=== PATIENT | female | born 1955 | race Two or more races ===

== ENCOUNTER 2024-11-25 08:06 | Inpatient (IN) | payer MEDICARE, OTHER ==
[~2024-11-25] VITALS: Ht 167.6 cm; Wt 38.5 kg
[2024-11-25] VITALS (9 sets, daily range): BP systolic 108–120; BP diastolic 47–57; PULSE 70–96; RESP 16–22; TEMP 97.7–98; O2SAT 94–96
[2024-11-25 09:00] LABS: Basophils # (auto) 0 10 ^3/uL (0-0.2); Basophils % (auto) 0.4 % (0.0-2.0); Eosinophils # (auto) 0 10 ^3/uL (0-0.8); Hematocrit 42.6 % (36.0-46.0); Hemoglobin 15.1 g/dL (12.2-16.2); Lymphocytes # (auto) 0.6 10 ^3/uL (0.4-5.4); Lymphocytes % (auto) 12.9 % (10.0-50.0); Mean Corpuscular Hemoglobin 33.7 pg (28.0-32.0); Mean Corpuscular Hgb Conc. 35.5 g/dL (32.0-36.0); Mean Corpuscular Volume 95.1 fL (80.0-100.0); Monocytes # (auto) 0.7 10 ^3/uL (0-1.3); Monocytes % (auto) 14.9 % (0.0-12.0); Neutrophils # (auto) 3.4 10 ^3/uL (1.6-8.6); Neutrophils % (auto) 71.8 % (37.0-80.0); Nucleated Red Blood Cells % 0.1 %; Platelet Count (auto) 189 10^3/uL (140-450); Red Blood Cells 4.48 10^6/uL (4.0-5.20); Red Cell Distribution Width 12.9 % (11.8-14.3); White Blood Cell 4.7 10^3/uL (4.4-10.8)
--- NOTE | 2024-11-25 09:09 | DVH ---
EXAM: XR Chest, 1 View CLINICAL INDICATION: flu like symptoms TECHNIQUE: Frontal view of the chest. COMPARISON: None FINDINGS: LUNGS AND PLEURAL SPACES: Hyperlucent lungs. Flattening of the diaphragm. No consolidation. No pn eumothorax. HEART: Unremarkable. No cardiomegaly. MEDIASTINUM: Unremarkable. Normal mediastinal contour. BONES/JOINTS: Unremarkable. No acute fracture. OTHER FINDINGS: . . IMPRESSION: Suggestion of COPD.
[2024-11-25 09:20] LABS: Alanine Aminotransferase 15 U/L (7-40); Albumin 4.6 g/dL (3.2-4.8); Alkaline Phosphatase 85 U/L (46-116); Anion Gap 9 (5-15); Aspartate Aminotransferase 26 U/L (13-40); BUN/Creatinine Ratio 14.1 (10.0-20.0); Bilirubin, Total 0.5 mg/dL (0.2-1.0); Blood Urea Nitrogen 11 mg/dL (9-23); Calcium 9.5 mg/dL (8.7-10.4); Carbon Dioxide 28 mmol/L (20-31); Potassium 3.6 mmol/L (3.5-5.1); Total Protein 7.6 g/dL (5.7-8.2)
[2024-11-25 09:22] LABS: Chloride 91 mmol/L (98-107); Glucose 125 mg/dL (74-106); Sodium 128 mmol/L (136-145)
--- NOTE | 2024-11-25 09:47 | ED.PDOC ---
SOB-HPI HPI Comments HPI: Poor Historian. HPI: 69 year old female accompanied by presents to the ED with chief complaint of flu-like illness. Patient reports that she has been experiencing a productive cough, nausea, subjective fever, body aches, and generalized weakness for the past week along with one episode of vomiting 2 days ago that has resolved. The vomiting was associated with coughing. Patient relays that she has not seen a doctor in the last 30 years and she smokes tobacco daily. Patient denies any diarrhea, abdominal pain, chest pain, dizziness, at this time. Vitals: Temp: 97.9F BP: 140/64 HR: 100 RR: 17 spO2: 95% Past Medical History: Hypotension, Cervical cancer, Pneumonia Past Surgical History: Tonsillectomy Social History: Smokes cigarettes. Denies ETOH or drug use. Allergies: Penicillins REVIEW OF SYSTEMS: CONSTITUTIONAL: Denies acute: diaphoresis, chills, HEAD: Denies acute: headache, photophobia Eyes: Denies acute: Double vision, vision loss, eye pain, eye discharge. EARS: Denies acute: tinnitus, hearing loss, ear discharge, ear pain, THROAT: Denies acute: sore throat, swelling, difficulty swallowing , pain with swallowing, change in voice. NECK: Denies acute: neck pain, neck swelling, stiff neck. HEART: Denies acute : chest pain, palpitations, LUNGS: Denies acute: wheezing, hemoptysis ABDOMEN: Denies acute: abdominal pain, Vomiting, diarrhea, melena , hematemesis, hematochezia SKIN: Denies acute: rash, redness, lesions, itchiness. EXTREMITIES: Denies acute: calf pain, numbness, tingling, weakness, denies pain in extremity. Denies acute: Low back pain. Neuro: Denies acute: focal neurological deficit, motor or sensory focal neurological deficit, tremors, seizure like activity, confusion, dizziness, change in mental status, loss of bowel or bladder function, cauda equina like symptoms. : Denies acute: dysuria, hematuria, flank pain, increase in urinary frequency. PSYCH: Denies acute: hallucination, suicidal ideation, homicidal ideation. FEMALE: Denies acute: abnormal vaginal bleeding, foul odor, unusual discharge. PHYSICAL EXAM: General: Mild acute distress, awake and alert. Head: normocephalic, atraumatic. Neck: supple, trachea is midline, no swelling. Throat: Normal phonation. Eyes:, no erythema, no purulent discharge, no proptosis, no icterus. Heart: regular rate, regular rhythm, no significant murmur appreciated. Lungs: Mild respiratory distress, Able to speak in full sentences. Bilateral wheezing, bilateral rhonchi, no crackles. No stridors Abdomen: non tender to palpation, non distended, soft, no guarding, no rebound, + bowel sounds. Neuro: Awake, Alert, oriented to name, self, situation, follows commands GCS=15. Speech is normal. Skin: no petechia, no purpura, no cyanosis, non-pale, not jaundice. Lower extremities: --no - Pitting edema no deformity, no focal swelling, no calf TTP. Makes eye contact. moves all four extremities. Face: no apparent facial droop. ED COURSE: Chief Complaint: Flu like Time Seen by MD: 09:43 Reviewed notes: Nurses Notes, Medications, Allergies Information Source: Patient Mode of Arrival: Ambulatory Was a procedure done? Was a procedure done?: No Differential Dx Differential Diagnosis: Other (DDx include ACS, unstable angina, anxiety, PE, pneumothroax, neoplasm, cardiac ischemia, COPD, asthma, CHF, pleural effusion, tobacco abuse, pneumonia, hypoxia, hypercapnia, anemia., infection/sepsis., pulmonary edema. Asthma, Cardiac tamponade, infection.) X-Ray, Labs, Meds, VS Vital Signs Date Time Temp Pulse Resp B/P (MAP) Pulse Ox O2 Delivery O2 Flow Rate FiO2 11/25/24 10:31 22 85 Room Air* 0 21 11/25/24 10:30 93 16 110/52 (71) 90 11/25/24 08:49 16 Room Air* 0 21 11/25/24 08:40 101 18 97 Room Air 11/25/24 08:40 97.8 101 18 124/69 (87) 97 97.8 11/25/24 08:27 97.9 100 17 140/64 (89) 95 97.9 11/25/24 08:27 17 Room Air* 0 21 Lab Test 11/25/24 10:14 11/25/24 09:10 11/25/24 08:45 Range/Units Blood Gas Specimen Type Arterial Blood Gas Sample Site Left radial Blood Gas Patient Temperature 37.0 Arterial Blood Date Drawn [id number] Arterial Blood pH 7.471 H 7.350-7.450 Arterial Blood Partial Pressure CO2 35.5 32.0-45.0 mmHg Arterial Blood Partial Pressure O2 47.5 *L 83.0-108.0 mmHg Arterial Blood HCO3 25.3 21.0-28.0 mmol/L Arterial Blood Oxygen Saturation 84.6 *L 94.0-98.0 % Arterial Blood Base Excess 2.1 -2.0-3.0 mmol/L Arterial Blood Oxyhemoglobin 82.9 L 94.0-98.0 % Arterial Blood Carboxyhemoglobin 1.6 H 0.5-1.5 % Arterial Blood Methemoglobin 0.4 0.0-1.5 % Clint Test Yes Blood Gas Total Hemoglobin 15.30 12.0-16.0 g/dL Blood Gas Liter Flow 0.00 Blood Gas Modality Room air FiO2 % 21.0 Blood Gas Critical Value Read Back Yes Blood Gas Notified Whom sri Gonzalez Blood Gas Notified Time [id number] Blood Gas Notified By Scientific Photographer da mendez Influenza Type A Antigen Negative Negative Influenza Type B Antigen Negative Negative SARS-CoV-2 Antigen (Rapid) Positive NEGATIVE White Blood Count 4.7 4.4-10.8 10^3/uL Red Blood Count 4.48 4.0-5.20 10^6/uL Hemoglobin 15.1 12.2-16.2 g/dL Hematocrit 42.6 36.0-46.0 % Mean Corpuscular Volume 95.1 80.0-100.0 fL Mean Corpuscular Hemoglobin 33.7 H 28.0-32.0 pg Mean Corpuscular Hemoglobin Concent 35.5 32.0-36.0 g/dL Red Cell Distribution Width 12.9 11.8-14.3 % Platelet Count 189 140-450 10^3/uL Mean Platelet Volume 7.5 6.9-10.8 fL Neutrophils (%) (Auto) 71.8 37.0-80.0 % Lymphocytes (%) (Auto) 12.9 10.0-50.0 % Monocytes (%) (Auto) 14.9 H 0.0-12.0 % Eosinophils (%) (Auto) 0.0 0.0-7.0 % Basophils (%) (Auto) 0.4 0.0-2.0 % Neutrophils # (Auto) 3.4 1.6-8.6 10 ^3/uL Lymphocytes # (Auto) 0.6 0.4-5.4 10 ^3/uL Monocytes # (Auto) 0.7 0-1.3 10 ^3/uL Eosinophils # (Auto) 0 0-0.8 10 ^3/uL Basophils # (Auto) 0 0-0.2 10 ^3/uL Nucleated Red Blood Cells 0.1 % Sodium Level 128 L 136-145 mmol/L Potassium Level 3.6 3.5-5.1 mmol/L Chloride Level 91 L 98-107 mmol/L Carbon Dioxide Level 28 20-31 mmol/L Anion Gap 9 5-15 Blood Urea Nitrogen 11 9-23 mg/dL Creatinine 0.78 0.550-1.02 mg/dL Glomerular Filtration Rate Calc 83 >90 mL/min BUN/Creatinine Ratio 14.1 10.0-20.0 Serum Glucose 125 H 74-106 mg/dL Lactic Acid Level 1.4 0.4-2.0 mmol/L Calcium Level 9.5 8.7-10.4 mg/dL Total Bilirubin 0.5 0.2-1.0 mg/dL Aspartate Amino Transferase (AST) 26 13-40 U/L Alanine Aminotransferase (ALT) 15 7-40 U/L Alkaline Phosphatase 85 46-116 U/L Troponin I High Sensitivity 3 L </=34 ng/L B-Type Natriuretic Peptide 46.08 0-100 pg/mL Total Protein 7.6 5.7-8.2 g/dL Albumin 4.6 3.2-4.8 g/dL Current Medications Medications (Trade) Dose Ordered Sig/Javed Route Start Time Stop Time Status Last Admin Albuterol (Ventolin Medneb) 2.5 mg ONCE ONCE NEB 11/25/24 09:45 11/25/24 10:01 DC 11/25/24 10:31 Ipratropium [place] (Atrovent Medneb) 1 mg ONCE ONCE NEB 11/25/24 09:45 11/25/24 10:01 DC 3/15/25 10:31 Methylprednisolone Sodium Succinate (Solu Medrol) 125 mg ONCE ONCE IV 11/25/24 09:45 11/25/24 10:01 DC 11/25/24 10:20 Time of 1ST Reevaluation: 10:43 Reevaluation 1ST: Unchanged Patient Education/Counseling: Diagnosis, Treatment Family Education/Counseling: Diagnosis, Treatment Comments Patient presented with the above HPI.--respiratory----workup was initiated. patient was found with the above mentioned diagnosis. the following medications were ordered: please refer to order lists of meds and tests obtained by myself Dr. Earl. Patient ED course and VS have been stabilized. Patient has been reassessed in the ED and remained in a stable condition. Pertinent incidental findings were discussed with the patient and/or family. Patient/family voices understanding and is agreeable with plan. Patient has been observed in the ED adequate length of time to insure improvement/stability. Escalation of care considered: Consideration of escalation to observation or admission Patient was ADMITTED to the medicine team for further evaluation and treatment of their presentation. All the reports of any imaging studies that were ordered by myself were reviewed by myself. Departure 1 Departure Time of Disposition: 10:19 Impression: Primary Impression: Hypoxemia Additional Impression: COVID-19 virus infection Disposition: ADMITTED INPATIENT Admit to: Tele Condition: Guarded Discharged With: Self Critical Care Note Critical Care Time?: Yes (35 min-critical care time only) Heart Score Heart Score: Heart Score Response (Comments) Value History Slightly Suspicious 0 EKG Normal 0 Age >65 2 Risk Factors 1 or 2 risk factors 1 Troponin Normal limit 0 Total 3 I personally scribed for WILBERT EARL DO ([email or web address]) on 11/25/24 at 09:47. Electronically submitted by Jefferson Bartholomew ([email or web address]). WILBERT EARL DO Nov 25, 2024 09:47
[2024-11-25] MEDS: methylPREDNISolone SOD SUCC 125 MG/2 ML VL IV ONE (10:20)
[2024-11-25] MEDS: ALBUTEROL SULF 2.5 MG/0.5ML(0.5%) NEB SOLN NEB ONE (10:31)
[2024-11-25] MEDS: IPRATROPIUM BROM 0.5 MG/2.5ML INH SOL NEB ONE (10:31)
[2024-11-25 10:37] LABS: Rapid Influenza A Negative (Negative); Rapid Influenza B Negative (Negative)
[2024-11-25 10:46] LABS: Base Excess 2.1 mmol/L (-2.0-3.0)
[2024-11-25 10:57] LABS: COVID19 ANTIGEN SOFIA FIA POSITIVE (NEGATIVE)
[2024-11-25] MEDS ORDERED: REMDESIVIR PER PHARMACY 0 ML IV SCH (11:30)
[2024-11-25] MEDS ORDERED: ONDANSETRON HCL 4 MG/2 ML VIAL IV PRN (11:30)
[2024-11-25] MEDS ORDERED: HYDROcodone-ACET 5/325MG TAB PO PRN (11:30)
[2024-11-25] MEDS ORDERED: ACETAMINOPHEN 325 MG TAB PO PRN (11:30)
--- NOTE | 2024-11-25 12:38 | DVHHP2 ---
History of Present Illness Reason for Visit: Flu-like symptoms History of Present Illness Nel Fried is a 69 year female with past medical history of COPD, hypertension, cervical cancer, pneumonia, osteopenia, and tonsillectomy who presents to the ED for flu-like symptoms of nausea, cough, decreased appetite, dehydration, shortness of breath, and diarrhea. Patient reports that she was not exposed to any recent sick contacts but may have gotten her son sick. She also reports that she has been sick for the last 1 week. She also reported that she had some productive cough but does not recall the color. Patient denies any chest pain, abdominal pain, vomiting, dizziness, numbness, tingling, fever, or chills. Patient also reports that she has been getting weak. Patient reported that she just quit smoking cigarettes last week. Pulmonary: COPD, Pneumonia Past Medical History Hypotension Cervical cancer Osteopenia Past Surgical History: Tonsillectomy Family History: Other (Dad with heart disease) Smoke: Quit ALCOHOL: none Drugs: Marijuana Lives: with Family Domestic Violence: Neg Review of Systems Constitutional: Yes: Other (Decreased appetite) Respiratory: Cough, Shortness of breath, Sputum Gastrointestinal: Nausea, Diarrhea Allergies: Coded Allergies: Penicillins (Verified Allergy, Unknown, 11/25/24) Exam Vital Signs Vital Signs Date Time Temp Pulse Resp B/P (MAP) Pulse Ox O2 Delivery O2 Flow Rate FiO2 11/25/24 10:31 22 85 Room Air* 0 21 11/25/24 10:30 93 110/52 (71) 11/25/24 08:40 97.8 97.8 General Appearance: Alert, Oriented X3, Cooperative, mild distress HEENT: Atraumatic, PERRLA, EOMI, Mucous membr. moist/pink Respiratory: Normal air movement Cardiovascular: Normal S1, Normal S2, No murmurs Abdominal: Soft, No tenderness Extremities: No cyanosis, Normal pulses Neuro: Normal speech, Normal tone, Sensation intact Psych/Mental Status: Mental status NL, Mood NL Labs/Xrays Labs Test 11/25/24 10:14 11/25/24 09:10 11/25/24 08:45 Range/Units Blood Gas Specimen Type Arterial Blood Gas Sample Site Left radial Blood Gas Patient Temperature 37.0 Arterial Blood Date Drawn [id number] Arterial Blood pH 7.471 H 7.350-7.450 Arterial Blood Partial Pressure CO2 35.5 32.0-45.0 mmHg Arterial Blood Partial Pressure O2 47.5 *L 83.0-108.0 mmHg Arterial Blood HCO3 25.3 21.0-28.0 mmol/L Arterial Blood Oxygen Saturation 84.6 *L 94.0-98.0 % Arterial Blood Base Excess 2.1 -2.0-3.0 mmol/L Arterial Blood Oxyhemoglobin 82.9 L 94.0-98.0 % Arterial Blood Carboxyhemoglobin 1.6 H 0.5-1.5 % Arterial Blood Methemoglobin 0.4 0.0-1.5 % Clint Test Yes Blood Gas Total Hemoglobin 15.30 12.0-16.0 g/dL Blood Gas Liter Flow 0.00 Blood Gas Modality Room air FiO2 % 21.0 Blood Gas Critical Value Read Back Yes Blood Gas Notified Whom sri Gonzalez Blood Gas Notified Time [id number] Blood Gas Notified By Education Coordinator da mendez Influenza Type A Antigen Negative Negative Influenza Type B Antigen Negative Negative SARS-CoV-2 Antigen (Rapid) Positive NEGATIVE White Blood Count 4.7 4.4-10.8 10^3/uL Red Blood Count 4.48 4.0-5.20 10^6/uL Hemoglobin 15.1 12.2-16.2 g/dL Hematocrit 42.6 36.0-46.0 % Mean Corpuscular Volume 95.1 80.0-100.0 fL Mean Corpuscular Hemoglobin 33.7 H 28.0-32.0 pg Mean Corpuscular Hemoglobin Concent 35.5 32.0-36.0 g/dL Red Cell Distribution Width 12.9 11.8-14.3 % Platelet Count 189 140-450 10^3/uL Mean Platelet Volume 7.5 6.9-10.8 fL Neutrophils (%) (Auto) 71.8 37.0-80.0 % Lymphocytes (%) (Auto) 12.9 10.0-50.0 % Monocytes (%) (Auto) 14.9 H 0.0-12.0 % Eosinophils (%) (Auto) 0.0 0.0-7.0 % Basophils (%) (Auto) 0.4 0.0-2.0 % Neutrophils # (Auto) 3.4 1.6-8.6 10 ^3/uL Lymphocytes # (Auto) 0.6 0.4-5.4 10 ^3/uL Monocytes # (Auto) 0.7 0-1.3 10 ^3/uL Eosinophils # (Auto) 0 0-0.8 10 ^3/uL Basophils # (Auto) 0 0-0.2 10 ^3/uL Nucleated Red Blood Cells 0.1 % Sodium Level 128 L 136-145 mmol/L Potassium Level 3.6 3.5-5.1 mmol/L Chloride Level 91 L 98-107 mmol/L Carbon Dioxide Level 28 20-31 mmol/L Anion Gap 9 5-15 Blood Urea Nitrogen 11 9-23 mg/dL Creatinine 0.78 0.550-1.02 mg/dL Glomerular Filtration Rate Calc 83 >90 mL/min BUN/Creatinine Ratio 14.1 10.0-20.0 Serum Glucose 125 H 74-106 mg/dL Lactic Acid Level 1.4 0.4-2.0 mmol/L Calcium Level 9.5 8.7-10.4 mg/dL Total Bilirubin 0.5 0.2-1.0 mg/dL Aspartate Amino Transferase (AST) 26 13-40 U/L Alanine Aminotransferase (ALT) 15 7-40 U/L Alkaline Phosphatase 85 46-116 U/L Troponin I High Sensitivity 3 L </=34 ng/L B-Type Natriuretic Peptide 46.08 0-100 pg/mL Total Protein 7.6 5.7-8.2 g/dL Albumin 4.6 3.2-4.8 g/dL EXAM: XR Chest, 1 View CLINICAL INDICATION: flu like symptoms TECHNIQUE: Frontal view of the chest. COMPARISON: None FINDINGS: LUNGS AND PLEURAL SPACES: Hyperlucent lungs. Flattening of the diaphragm. No consolidation. No pneumothorax. HEART: Unremarkable. No cardiomegaly. MEDIASTINUM: Unremarkable. Normal mediastinal contour. BONES/JOINTS: Unremarkable. No acute fracture. OTHER FINDINGS: . . IMPRESSION: Suggestion of COPD. Assessment/Plan Assessment/Plan Assessment COVID positive Acute on chronic COPD exacerbation Hyponatremia Acute respiratory failure Tobacco use Marijuana use History of hypotension History of pneumonia History of cervical cancer History of osteopenia History of tonsillectomy Plan Admit to med surge Supportive oxygen Respiratory treatments Remdesivir IV steroids ABG ordered in ED EKG Chest x-ray Lactic UA Troponin negative BNP Counseled patient on cessation of tobacco marijuana use Bilateral lower extremity ultrasound venous DVT prophylaxis-Lovenox Discussed plan of care with patient and nurse Patient reports she takes no medications at home Plan discussed with: Patient My Orders Orders - YADIEL LIRIANO Procedure Category Date Status Time Remdesivir Per PHA 11/25/24 Verified Pharmacy 11:30 Albuterol Inhaler PHA 11/25/24 Verified (Ventolin Hfa) 14:00 NS PHA 11/25/24 Verified 11:30 Admit ADMIT 11/25/24 Verified 11:23 Allergies KATHERINE 11/25/24 Verified 11:23 Code Status CODE 11/25/24 Verified 11:23 Hydrocodone-Acet PHA 11/25/24 Verified 5/325mg Tab ([place] 11:30 Ondansetron Hcl PHA 11/25/24 Verified (Zofran) 11:30 Complete Blood Count LAB 11/26/24 Verified 04:00 Comprehensive LAB 11/26/24 Verified Metabolic Panel 04:00 Cardiac DIET 11/25/24 Verified Diet-2gna,Lofat,Lochol Lunch Acetaminophen Tablet PHA 11/25/24 Verified (Tylenol Tablet) 11:30 Methylprednisolone PHA 11/25/24 Verified Sod Succ (Solu Medrol 14:00 Enoxaparin Sodium PHA 11/26/24 Verified (Lovenox) 10:00 Date of Service: Nov 25, 2024 Billing Provider: YADIEL LIRIANO Common Visit Codes: [id number] INP/OBS CARE (HIGH) YADIEL LIRIANO Nov 25, 2024 12:38
--- NOTE | 2024-11-25 13:06 | DVH ---
Bilateral lower extremity venous duplex Clinical History: r/o dvt Comparison: None Technique: Duplex Doppler evaluation of the deep venous systems of both lower extremities from the common femora l veins to the popliteal veins including color Doppler and spectral/pulsed waveform analysis was perf ormed. Findings: RIGHT SIDE: The common femoral vein demonstrates appropriate compressibility and waveform variability. There is compressibility/patency of the great saphenous vein at the proximal thigh. The femoral vein demonstrates appropriate compressibility and waveform variability. The deep femoral vein demonstrates appropriate compressibility and waveform variability. The popliteal vein demonstrates appropriate compressibility and waveform variability. There is normal compressibility at the tibioperoneal trunk. LEFT SIDE: The common femoral vein demonstrates appropriate compressibility and waveform variability. There is compressibility/patency of the great saphenous vein at the proximal thigh. The femoral vein demonstrates appropriate compressibility and waveform variability. The deep femoral vein demonstrates appropriate compressibility and waveform variability. The popliteal vein demonstrates appropriate compressibility and waveform variability. There is normal compressibility at the tibioperoneal trunk. Impression: 1. No right or left femoropopliteal venous thrombosis.
[2024-11-25] MEDS: ALBUTEROL SULF HFA 90MCG INH 200DOSE IN SCH (14:13)
[2024-11-25] MEDS: SODIUM CHLORIDE 0.9% 1,000 ML IV SCH (14:15)
[2024-11-25] MEDS: methylPREDNISolone SOD SUCC 40 MG/ML VL IV SCH (14:15)
[2024-11-25 14:47] LABS: Urine Bacteria None Seen /hpf (None Seen)
[2024-11-25 15:21] LABS: Urine Blood Negative /uL (Negative); Urine Clarity Clear (Clear); Urine Color Light-Yellow (Yellow); Urine Protein, UAD TRACE (Negative); Urine Specific Gravity 1.011 (1.001-1.035); Urine Squamous Epithelial Cell None Seen /hpf (<5); Urine Urobilinogen Normal (Negative); Urine WBC 1 /HPF (0-5); Urine pH 5.5 (5.0-9.0)
[2024-11-25] MEDS: REMDESIVIR 200mg in NS 210mL LOADING DOSE ADULT IV ONE (16:49)
[2024-11-26] VITALS (9 sets, daily range): BP systolic 93–126; BP diastolic 45–58; PULSE 69–88; RESP 15–19; TEMP 98–98.7; O2SAT 90–99
[2024-11-26 07:32] LABS: Basophils # (auto) 0 10 ^3/uL (0-0.2); Eosinophils # (auto) 0 10 ^3/uL (0-0.8); Monocytes # (auto) 0.7 10 ^3/uL (0-1.3)
[2024-11-26 07:34] LABS: Basophils % (auto) 0.3 % (0.0-2.0); Hematocrit 37.8 % (36.0-46.0); Hemoglobin 13.2 g/dL (12.2-16.2); Lymphocytes # (auto) 0.5 10 ^3/uL (0.4-5.4); Lymphocytes % (auto) 7.3 % (10.0-50.0); Mean Corpuscular Hemoglobin 33.5 pg (28.0-32.0); Mean Corpuscular Hgb Conc. 35.1 g/dL (32.0-36.0); Mean Corpuscular Volume 95.6 fL (80.0-100.0); Monocytes % (auto) 9.1 % (0.0-12.0); Neutrophils # (auto) 6.2 10 ^3/uL (1.6-8.6); Neutrophils % (auto) 83.3 % (37.0-80.0); Nucleated Red Blood Cells % 0.1 %; Platelet Count (auto) 205 10^3/uL (140-450); Red Blood Cells 3.95 10^6/uL (4.0-5.20); Red Cell Distribution Width 12.6 % (11.8-14.3); White Blood Cell 7.5 10^3/uL (4.4-10.8)
[2024-11-26 07:53] LABS: Alanine Aminotransferase 11 U/L (7-40); Alkaline Phosphatase 68 U/L (46-116); Anion Gap 6 (5-15); Aspartate Aminotransferase 19 U/L (13-40); BUN/Creatinine Ratio 15.6 (10.0-20.0); Bilirubin, Total 0.4 mg/dL (0.2-1.0); Blood Urea Nitrogen 10 mg/dL (9-23); Calcium 9.4 mg/dL (8.7-10.4); Carbon Dioxide 29 mmol/L (20-31); Chloride 101 mmol/L (98-107); Potassium 4.5 mmol/L (3.5-5.1); Total Protein 6.6 g/dL (5.7-8.2)
[2024-11-26 07:58] LABS: Glucose 120 mg/dL (74-106); Sodium 136 mmol/L (136-145)
[2024-11-26] MEDS: ENOXAPARIN SOD 30 MG/0.3 ML SYRINGE SC SCH (10:00)
[2024-11-26] MEDS: REMDESIVIR 100mg in NS 230mL (5 DAY REGIMEN) IV SCH (15:41)
[2024-11-26] MEDS: Ensure Enlive Strawberry 8oz Bottle PO SCH (18:25)
--- NOTE | 2024-11-26 22:27 | DVHPN2 ---
Subjective The patient is seen and examined at bedside. Complain of back pain. Patient said the hot pad does help her. Denied any shortness for breath. Complain that she can not eat food because it taste too salty. Reviewed: Care Plan, H&P, Labs, Medications, Previous Orders, Radiology Changes from previous H/P or p: No Changes Respiratory: Cough, Shortness of breath, Sputum Gastrointestinal: Nausea, Diarrhea Objective Vitals Vital Signs Date Time Temp Pulse Resp B/P (MAP) Pulse Ox O2 Delivery O2 Flow Rate FiO2 11/26/24 20:42 95 Nasal Cannula* 4 36 11/26/24 17:00 98.7 73 15 109/50 (69) 98.7 Intake/Output Intake and Output 11/26/24 07:00 Intake Total 2050 ml Output Total 700 ml Balance 1350 ml Intake Oral 800 ml IV Total 1250 ml Output Urine Total 700 ml General Appearance: Alert, Cooperative, No acute distress HEENT: Atraumatic, PERRLA, EOMI, Mucous membr. moist/pink Neck: Supple Lungs: Clear to auscultation, Normal air movement Cardiovascular: Regular rate, Normal S1, Normal S2, No murmurs, Gallops, Rubs Abdomen: Normal bowel sounds, Soft, No tenderness Extremities: Normal pulses Neuro: Cranial nerves 3-12 NL Psych/Mental Status: Mental status NL Medications Current Medications Medications Dose Ordered Sig/Javed Route Start Time Stop Time Status Last Admin Dose Admin Remdesivir 0 ml @ 0 mls/hr PER PHARMACY IV 11/25/24 11:30 11/29/24 11:31 Albuterol 90 mcg TID IN 11/25/24 14:00 11/26/24 20:42 90 MCG Sodium Chloride 1,000 ml @ 100 mls/hr Q10H IV 11/25/24 11:30 11/26/24 18:25 100 MLS/HR Acetaminophen/ Hydrocodone Bitart 1 tab Q4HP PRN PO 11/25/24 11:30 Ondansetron HCl 4 mg Q4HP PRN IV 11/25/24 11:30 Acetaminophen 650 mg Q6HP PRN PO 11/25/24 11:30 Methylprednisolone Sodium Succinate 40 mg Q8HR IV 11/25/24 14:00 11/26/24 21:40 40 MG Enoxaparin Sodium 30 mg DAILY SC 11/26/24 10:00 11/26/24 10:00 30 MG Remdesivir 100 mg/ Sodium Chloride 250 ml @ 250 mls/hr DAILY@1500 IV 11/26/24 15:00 11/29/24 15:59 11/26/24 15:41 250 MLS/HR Enteral Nutritional Formula 480 ml TIDWM PO 11/26/24 18:00 11/26/24 18:25 480 ML Laboratory Results Laboratory Tests 11/26/24 07:05 Chemistry Test 11/26/24 07:05 Albumin 4.0 g/dL (3.2-4.8) Calcium Level 9.4 mg/dL (8.7-10.4) Total Protein 6.6 g/dL (5.7-8.2) LFT Test 11/26/24 07:05 Alanine Aminotransferase (ALT) 11 U/L (7-40) Alkaline Phosphatase 68 U/L (46-116) Aspartate Amino Transferase (AST) 19 U/L (13-40) Total Bilirubin 0.4 mg/dL (0.2-1.0) Urinalysis Test 11/25/24 13:00 Urine Color Light-yellow (Yellow) Urine Clarity Clear (Clear) Urine pH 5.5 (5.0-9.0) Urine Specific [place] 1.011 (1.001-1.035) Urine Protein Trace (Negative) H Urine Ketones 2+ (Negative) H Urine Blood Negative /uL (Negative) Urine Nitrite Negative (Negative) Urine Bilirubin Negative (Negative) Urine Urobilinogen Normal mg/dL (Negative) Urine Leukocyte Esterase Negative /uL (Negative) Urine RBC <1 /hpf (0 - 4) Urine Microscopic WBC 1 /HPF (0-5) Urine Squamous Epithelial Cells None seen /hpf (<5) Urine Bacteria None seen /hpf (None Seen) Urine Glucose Normal mg/dL (Normal) Labs and/or images reviewed: Labs reviewed by me Assessment/Plan Assessment/Plan COVID positive Acute on chronic COPD exacerbation Hyponatremia Acute respiratory failure Tobacco use Marijuana use History of cervical cancer Moderate protein calorie malnutrition Continuing current management. Continuing with remdesivir. I will start the patient on ensure two cans per meals The patient has stated she can not eat food because it tastes too salty is in the time she got COVID Advised to stop smoking marijuana and tobacco. Continuing with inhaler. Continuing with Solu-Medrol This medical document was created using an electronic medical record system with [employer] direct computerized dictation system. Although this document has been carefully reviewed, there may still be some phonetic and typographical errors. These areas are purely typographical due to imperfections of the software programs, and do not reflect any compromise in the patient's medical care. Plan discussed with: Patient My Orders Orders - DARIUSZ FAULKNER MD Procedure Category Date Status Time Nutritional PHA 11/26/24 In Process Supplements (Ensure 18:00 Date of Service: Nov 26, 2024 Billing Provider: DARIUSZ FAULKNER MD Common Visit Codes: [id number] INP/OBS CARE(HIGH) DARIUSZ FAULKNER MD Nov 26, 2024 22:27
[2024-11-27] VITALS (11 sets, daily range): BP systolic 90–118; BP diastolic 33–61; PULSE 70–93; RESP 14–18; TEMP 97.5–98.7; O2SAT 90–99
[2024-11-27 10:24] LABS: Basophils # (auto) 0 10 ^3/uL (0-0.2); Basophils % (auto) 0.1 % (0.0-2.0); Eosinophils # (auto) 0 10 ^3/uL (0-0.8); Hematocrit 37.8 % (36.0-46.0); Hemoglobin 12.9 g/dL (12.2-16.2); Lymphocytes # (auto) 0.2 10 ^3/uL (0.4-5.4); Mean Corpuscular Hemoglobin 32.6 pg (28.0-32.0); Mean Corpuscular Hgb Conc. 34.1 g/dL (32.0-36.0); Mean Corpuscular Volume 95.7 fL (80.0-100.0); Monocytes # (auto) 0.5 10 ^3/uL (0-1.3); Monocytes % (auto) 4.4 % (0.0-12.0); Neutrophils # (auto) 10.3 10 ^3/uL (1.6-8.6); Neutrophils % (auto) 93.5 % (37.0-80.0); Platelet Count (auto) 270 10^3/uL (140-450); Red Blood Cells 3.95 10^6/uL (4.0-5.20); Red Cell Distribution Width 12.6 % (11.8-14.3); White Blood Cell 11.1 10^3/uL (4.4-10.8)
[2024-11-27 10:51] LABS: Anion Gap 7 (5-15); Chloride 100 mmol/L (98-107); Potassium 3.7 mmol/L (3.5-5.1); Sodium 138 mmol/L (136-145)
[2024-11-27 10:53] LABS: Calcium 9.4 mg/dL (8.7-10.4)
[2024-11-27 10:58] LABS: BUN/Creatinine Ratio 20.9 (10.0-20.0); Blood Urea Nitrogen 14 mg/dL (9-23)
--- NOTE | 2024-11-27 11:04 | DVHPN2 ---
Progress Note Date Seen: Nov 27, 2024 Medical Necessity Reason Pt with a Central, PICC or Fol: No Subjective Patient reports: No new complaints Review of Systems: HEENT:Normal, CVS:Normal, RESPIRATORY:Normal, GI:Normal, :Normal, MSK:Normal, NEURO:Normal Objective vital signs Vital Sign Date Time Temp Pulse Resp B/P (MAP) Pulse Ox O2 Delivery O2 Flow Rate FiO2 11/27/24 09:00 97.9 75 16 103/58 (73) 95 97.9 11/27/24 07:12 Nasal Cannula 4.0 11/27/24 07:12 36 Total Intake and Output 11/26/24 11/26/24 11/27/24 15:00 23:00 07:00 Intake Total 1690 ml 400 ml Balance 1690 ml 400 ml medications Current Medications Medications Dose Ordered Sig/Javed Route Start Time Stop Time Status Last Admin Dose Admin Remdesivir 0 ml @ 0 mls/hr PER PHARMACY IV 11/25/24 11:30 11/29/24 11:31 Albuterol 90 mcg TID IN 11/25/24 14:00 11/27/24 07:12 90 MCG Sodium Chloride 1,000 ml @ 100 mls/hr Q10H IV 11/25/24 11:30 11/27/24 02:09 100 MLS/HR Acetaminophen/ Hydrocodone Bitart 1 tab Q4HP PRN PO 11/25/24 11:30 Ondansetron HCl 4 mg Q4HP PRN IV 11/25/24 11:30 Acetaminophen 650 mg Q6HP PRN PO 11/25/24 11:30 Methylprednisolone Sodium Succinate 40 mg Q8HR IV 11/25/24 14:00 11/27/24 05:08 40 MG Enoxaparin Sodium 30 mg DAILY SC 11/26/24 10:00 11/26/24 10:00 30 MG Remdesivir 100 mg/ Sodium Chloride 250 ml @ 250 mls/hr DAILY@1500 IV 11/26/24 15:00 11/29/24 15:59 11/26/24 15:41 250 MLS/HR Enteral Nutritional Formula 480 ml TIDWM PO 11/26/24 18:00 11/27/24 08:00 480 ML Examination: GENERAL:Normal, HEENT:Normal, NECK:Normal, LUNGS:Normal, LUNGS:Abnormal (on oxygen, decreased bilaterally), CVS:Normal, ABDOMEN:Normal, MSK:Normal, SKIN:Normal, NEURO:Normal, :Normal laboratory and microbiology Laboratory Tests 11/27/24 09:55 Test 11/27/24 09:55 Range/Units Serum Glucose Pending Problem List/Assessment/Plan Problem List/Assessment/Plan #1 acute resp failure: on oxygen #2 copd with exacerbation: iv steroids #3 covid 19 pneumonia: on remdesevir #4 pneumonia: gram positive/neg #5 h/o cervical cancer #6 tobacco abuse: advised to quit, refused nicotine patch- time spent 11mins advance care planning- full code- time spent 19 mins Plan discussed with: Patient Dietary Evaluation Review Recommendations by RD: Increase Calorie Intake, Protein Supplementation Comments: 1) Initiate Ensure Enlive tid 2) Promote optimal PO intake 3) Consider appetite stimulant 4) Encourage smoking cessation 5) May need to consider PEG tube Expected Outcomes/Goals: 1) appetite and labs to improve 2) gradual weight gain 3) f/u in 3 days Date of Service: Nov 27, 2024 Billing Provider: LEXI VAUGHN MD Common Visit Codes: [id number] INP/OBS CARE(HIGH) Secondary Visit Codes: [id number] CHNG SMOKING >10MIN, [id number] CARE PLAN 30 MINUTES LEXI VAUGHN MD Nov 27, 2024 11:04
[2024-11-27 11:06] LABS: Carbon Dioxide 31 mmol/L (20-31); Glucose 190 mg/dL (74-106)
[2024-11-27] MEDS: AZITHROMYCIN 500MG/ 250ML 250 ML IV ONE (13:38)
[2024-11-27] MEDS: diphenhdrAMINE HCL 25 MG CAP PO PRN (22:00)
[2024-11-28] VITALS (13 sets, daily range): BP systolic 106–128; BP diastolic 54–80; PULSE 66–87; RESP 14–20; TEMP 97.9–98.7; O2SAT 90–99
[2024-11-28 06:52] LABS: Alanine Aminotransferase 19 U/L (7-40); Albumin 3.9 g/dL (3.2-4.8); Alkaline Phosphatase 64 U/L (46-116); Anion Gap 5 (5-15); Aspartate Aminotransferase 14 U/L (13-40); BUN/Creatinine Ratio 22.4 (10.0-20.0); Bilirubin, Total 0.4 mg/dL (0.2-1.0); Blood Urea Nitrogen 15 mg/dL (9-23); Calcium 9.7 mg/dL (8.7-10.4); Carbon Dioxide 36 mmol/L (20-31); Chloride 99 mmol/L (98-107); Glucose 132 mg/dL (74-106); Sodium 140 mmol/L (136-145); Total Protein 6.4 g/dL (5.7-8.2)
--- NOTE | 2024-11-28 06:59 | DVH ---
EXAM: XR Chest, 1 View CLINICAL INDICATION: COPD TECHNIQUE: Frontal view of the chest. COMPARISON: XY CHEST PORTABLE on DOS: 11/25/24 FINDINGS: LUNGS AND PLEURAL SPACES: Hyperlucent lungs. Flattening of the diaphragm. No consolidation. No pn eumothorax. HEART: Unremarkable. No cardiomegaly. MEDIASTINUM: Unremarkable. Normal mediastinal contour. BONES/JOINTS: Unremarkable. No acute fracture. OTHER FINDINGS: . IMPRESSION: Suggestion of COPD.
[2024-11-28] MEDS: AZITHROMYCIN 500MG/ 250ML 250 ML IV SCH (09:23)
--- NOTE | 2024-11-28 10:22 | DVHPN2 ---
Progress Note Date Seen: Nov 28, 2024 Medical Necessity Reason Pt with a Central, PICC or Fol: No Subjective Patient reports: No new complaints Review of Systems: HEENT:Normal, CVS:Normal, RESPIRATORY:Normal, GI:Normal, :Normal, MSK:Normal, NEURO:Normal Objective vital signs Vital Sign Date Time Temp Pulse Resp B/P (MAP) Pulse Ox O2 Delivery O2 Flow Rate FiO2 11/28/24 08:45 97.9 87 20 110/80 (90) 92 97.9 11/28/24 08:00 Nasal Cannula* 3 32 Total Intake and Output 11/27/24 11/27/24 11/28/24 15:00 23:00 07:00 Intake Total 474 ml 240 ml Balance 474 ml 240 ml medications Current Medications Medications Dose Ordered Sig/Javed Route Start Time Stop Time Status Last Admin Dose Admin Remdesivir 0 ml @ 0 mls/hr PER PHARMACY IV 11/25/24 11:30 11/29/24 11:31 Albuterol 90 mcg TID IN 11/25/24 14:00 11/28/24 05:58 90 MCG Acetaminophen/ Hydrocodone Bitart 1 tab Q4HP PRN PO 11/25/24 11:30 Ondansetron HCl 4 mg Q4HP PRN IV 11/25/24 11:30 Acetaminophen 650 mg Q6HP PRN PO 11/25/24 11:30 Methylprednisolone Sodium Succinate 40 mg Q8HR IV 11/25/24 14:00 11/28/24 06:11 40 MG Enoxaparin Sodium 30 mg DAILY SC 11/26/24 10:00 11/28/24 09:23 30 MG Remdesivir 100 mg/ Sodium Chloride 250 ml @ 250 mls/hr DAILY@1500 IV 11/26/24 15:00 11/29/24 15:59 11/27/24 15:00 250 MLS/HR Enteral Nutritional Formula 480 ml TIDWM PO 11/26/24 18:00 11/28/24 08:00 480 ML Azithromycin 250 ml @ 125 mls/hr DAILY IV 11/28/24 10:00 11/28/24 09:23 125 MLS/HR Diphenhydramine HCl 50 mg QHSP PRN PO 11/27/24 11:15 11/27/24 22:00 50 MG Examination: GENERAL:Normal, HEENT:Normal, NECK:Normal, LUNGS:Normal, LUNGS:Abnormal (on oxygen), CVS:Normal, ABDOMEN:Normal, MSK:Normal, SKIN:Normal, NEURO:Normal, :Normal laboratory and microbiology Laboratory Tests 11/28/24 05:32 11/27/24 09:55 Test 11/28/24 05:32 Range/Units Serum Glucose 132 H 74-106 mg/dL Problem List/Assessment/Plan Problem List/Assessment/Plan #1 acute resp failure: on oxygen #2 copd with exacerbation: iv steroids #3 covid 19 pneumonia: on remdesevir #4 pneumonia: gram positive/neg #5 h/o cervical cancer #6 tobacco abuse: advised to quit, refused nicotine patch- time spent 11mins advance care planning- full code- time spent 19 mins Plan discussed with: Patient My Orders My Orders Orders - LEXI VAUGHN MD Procedure Category Date Status Time Azithromycin 500mg/ PHA 11/28/24 In Process 250ml (Zithromax 50 10:00 Chest Portable XY 11/28/24 Resulted 06:00 Diphenhdramine PHA 11/27/24 In Process Capsule (Benadryl 11:15 Methylprednisolone PHA 11/28/24 Verified Sod Succ (Solu Medrol 22:00 Abg W/ Co-Ox RT 11/29/24 Verified 06:00 Dietary Evaluation Review Recommendations by RD: Increase Calorie Intake, Protein Supplementation Comments: 1) Initiate Ensure Enlive tid 2) Promote optimal PO intake 3) Consider appetite stimulant 4) Encourage smoking cessation 5) May need to consider PEG tube Expected Outcomes/Goals: 1) appetite and labs to improve 2) gradual weight gain 3) f/u in 3 days Date of Service: Nov 28, 2024 Billing Provider: LEXI VAUGHN MD Common Visit Codes: [id number] INP/OBS CARE(HIGH) LEXI VAUGHN MD Nov 28, 2024 10:22
[2024-11-28] MEDS: methylPREDNISolone SOD SUCC 40 MG/ML VL IV SCH (20:04)
[2024-11-29] VITALS (11 sets, daily range): BP systolic 101–156; BP diastolic 41–80; PULSE 59–87; RESP 16–20; TEMP 97.5–98.3; O2SAT 87–98
[2024-11-29 06:00] LABS: Alanine Aminotransferase 19 U/L (7-40); Alkaline Phosphatase 64 U/L (46-116); Anion Gap 5 (5-15); Aspartate Aminotransferase 14 U/L (13-40); BUN/Creatinine Ratio 30.4 (10.0-20.0); Blood Urea Nitrogen 17 mg/dL (9-23); Calcium 10.1 mg/dL (8.7-10.4); Potassium 4.3 mmol/L (3.5-5.1); Sodium 137 mmol/L (136-145); Total Protein 6.7 g/dL (5.7-8.2)
[2024-11-29 06:01] LABS: Bilirubin, Total 0.5 mg/dL (0.2-1.0)
[2024-11-29 06:16] LABS: Carbon Dioxide 35 mmol/L (20-31); Chloride 97 mmol/L (98-107); Glucose 141 mg/dL (74-106)
[2024-11-29 07:13] LABS: Base Excess 8.7 mmol/L (-2.0-3.0)
--- NOTE | 2024-11-29 10:02 | DVHPN2 ---
Progress Note Date Seen: Nov 29, 2024 Medical Necessity Reason Pt with a Central, PICC or Fol: No Subjective Patient reports: No new complaints Review of Systems: HEENT:Normal, CVS:Normal, RESPIRATORY:Normal, GI:Normal, :Normal, MSK:Normal, NEURO:Normal Objective vital signs Vital Sign Date Time Temp Pulse Resp B/P (MAP) Pulse Ox O2 Delivery O2 Flow Rate FiO2 11/29/24 08:30 98.3 59 20 156/59 (91) 87 98.3 11/29/24 06:31 Nasal Cannula 4.0 11/29/24 06:31 36 Total Intake and Output 11/28/24 11/28/24 11/29/24 15:00 23:00 07:00 Intake Total 250 ml 1230 ml 639 ml Balance 250 ml 1230 ml 639 ml medications Current Medications Medications Dose Ordered Sig/Javed Route Start Time Stop Time Status Last Admin Dose Admin Remdesivir 0 ml @ 0 mls/hr PER PHARMACY IV 11/25/24 11:30 11/29/24 11:31 Albuterol 90 mcg TID IN 11/25/24 14:00 11/29/24 06:31 90 MCG Acetaminophen/ Hydrocodone Bitart 1 tab Q4HP PRN PO 11/25/24 11:30 Ondansetron HCl 4 mg Q4HP PRN IV 11/25/24 11:30 Acetaminophen 650 mg Q6HP PRN PO 11/25/24 11:30 Enoxaparin Sodium 30 mg DAILY SC 11/26/24 10:00 11/28/24 09:23 30 MG Remdesivir 100 mg/ Sodium Chloride 250 ml @ 250 mls/hr DAILY@1500 IV 11/26/24 15:00 11/29/24 15:59 11/28/24 15:18 250 MLS/HR Enteral Nutritional Formula 480 ml TIDWM PO 11/26/24 18:00 11/28/24 17:31 480 ML Azithromycin 250 ml @ 125 mls/hr DAILY IV 11/28/24 10:00 11/28/24 09:23 125 MLS/HR Diphenhydramine HCl 50 mg QHSP PRN PO 11/27/24 11:15 11/27/24 22:00 50 MG Methylprednisolone Sodium Succinate 40 mg BID IV 11/28/24 22:00 11/28/24 20:04 40 MG Examination: GENERAL:Normal, HEENT:Normal, NECK:Normal, LUNGS:Normal, LUNGS:Abnormal (on oxygen), CVS:Normal, ABDOMEN:Normal, MSK:Normal, SKIN:Normal, NEURO:Normal, :Normal laboratory and microbiology Laboratory Tests 11/29/24 05:03 11/27/24 09:55 Test 11/29/24 05:03 Range/Units Serum Glucose 141 H 74-106 mg/dL Problem List/Assessment/Plan Problem List/Assessment/Plan #1 acute resp failure: on oxygen #2 copd with exacerbation: steroids #3 covid 19 pneumonia: on remdesevir #4 pneumonia: gram positive/neg #5 h/o cervical cancer #6 tobacco abuse: advised to quit, refused nicotine patch- time spent 11mins advance care planning- full code- time spent 19 mins Plan discussed with: Patient My Orders My Orders Orders - LEXI VAUGHN MD Procedure Category Date Status Time Methylprednisolone PHA 11/28/24 In Process Sod Succ (Solu Medrol 22:00 Abg W/ Co-Ox RT 11/29/24 Logged 06:00 * Preschool Teacher Assistant CONS 11/28/24 Transmitted Consult * Preschool Teacher Assistant CONS 11/29/24 Verified Consult * Preschool Teacher Assistant CONS 11/29/24 Verified Consult Prednisone Tablet PHA 11/29/24 Verified 10:00 Azithromycin Tablet PHA 11/29/24 Verified (Zithromax Tablet) 10:00 Dietary Evaluation Review Recommendations by RD: Increase Calorie Intake, Protein Supplementation Comments: 1) Initiate Ensure Enlive tid 2) Promote optimal PO intake 3) Consider appetite stimulant 4) Encourage smoking cessation 5) May need to consider PEG tube Expected Outcomes/Goals: 1) appetite and labs to improve 2) gradual weight gain 3) f/u in 3 days Date of Service: Nov 29, 2024 Billing Provider: LEXI VAUGHN MD Common Visit Codes: [id number] INP/OBS CARE(HIGH) LEXI VAUGHN MD Nov 29, 2024 10:02
[2024-11-29] MEDS: AZITHROMYCIN 250 MG TAB PO SCH (18:52)
[2024-11-29] MEDS: predniSONE 20 MG TAB PO SCH (18:52)
[2024-11-30] VITALS (8 sets, daily range): BP systolic 94–115; BP diastolic 42–60; PULSE 66–94; RESP 15–20; TEMP 97–98.2; O2SAT 93–100
[2024-11-30 07:38] LABS: Alanine Aminotransferase 22 U/L (7-40); Albumin 3.9 g/dL (3.2-4.8); Alkaline Phosphatase 71 U/L (46-116); Anion Gap 4 (5-15); BUN/Creatinine Ratio 27.7 (10.0-20.0); Bilirubin, Total 0.6 mg/dL (0.2-1.0); Blood Urea Nitrogen 18 mg/dL (9-23); Calcium 9.6 mg/dL (8.7-10.4); Glucose 99 mg/dL (74-106); Potassium 4.2 mmol/L (3.5-5.1); Sodium 137 mmol/L (136-145); Total Protein 6.8 g/dL (5.7-8.2)
[2024-11-30 07:41] LABS: Aspartate Aminotransferase 11 U/L (13-40); Carbon Dioxide 38 mmol/L (20-31); Chloride 95 mmol/L (98-107)
--- NOTE | 2024-11-30 10:21 | DVHDS2 ---
Discharge Summary Date of Admission Nov 25, 2024 at 11:23 Date of Discharge: Nov 30, 2024 Labs/Diagnostic Data: Laboratory Results Test 11/30/24 07:03 11/29/24 07:05 11/27/24 09:55 11/25/24 13:00 Sodium Level 137 mmol/L (136-145) Potassium Level 4.2 mmol/L (3.5-5.1) Chloride Level 95 mmol/L (98-107) Carbon Dioxide Level 38 mmol/L (20-31) Anion Gap 4 (5-15) Blood Urea Nitrogen 18 mg/dL (9-23) Creatinine 0.65 mg/dL (0.550-1.02) Glomerular Filtration Rate Calc 96 mL/min (>90) BUN/Creatinine Ratio 27.7 (10.0-20.0) Serum Glucose 99 mg/dL (74-106) Calcium Level 9.6 mg/dL (8.7-10.4) Total Bilirubin 0.6 mg/dL (0.2-1.0) Aspartate Amino Transferase (AST) 11 U/L (13-40) Alanine Aminotransferase (ALT) 22 U/L (7-40) Alkaline Phosphatase 71 U/L (46-116) Total Protein 6.8 g/dL (5.7-8.2) Albumin 3.9 g/dL (3.2-4.8) Blood Gas Specimen Type Arterial Blood Gas Sample Site Left radial Blood Gas Patient Temperature 37.0 Arterial Blood Date Drawn [id number] Arterial Blood pH 7.499 (7.350-7.450) Arterial Blood Partial Pressure CO2 43.2 mmHg (32.0-45.0) Arterial Blood Partial Pressure O2 40.8 mmHg (83.0-108.0) Arterial Blood HCO3 32.9 mmol/L (21.0-28.0) Arterial Blood Oxygen Saturation 78.9 % (94.0-98.0) Arterial Blood Base Excess 8.7 mmol/L (-2.0-3.0) Arterial Blood Oxyhemoglobin 78.0 % (94.0-98.0) Arterial Blood Carboxyhemoglobin 0.7 % (0.5-1.5) Arterial Blood Methemoglobin 0.4 % (0.0-1.5) Clint Test Yes Blood Gas Total Hemoglobin 14.30 g/dL (12.0-16.0) Blood Gas Modality Room air FiO2 % 21.0 Blood Gas Critical Value Read Back yes Blood Gas Notified Whom sorting grapple operator nathaniel Blood Gas Notified Time [id number] Blood Gas Notified By commodity broker qiana White Blood Count 11.1 10^3/uL (4.4-10.8) Red Blood Count 3.95 10^6/uL (4.0-5.20) Hemoglobin 12.9 g/dL (12.2-16.2) Hematocrit 37.8 % (36.0-46.0) Mean Corpuscular Volume 95.7 fL (80.0-100.0) Mean Corpuscular Hemoglobin 32.6 pg (28.0-32.0) Mean Corpuscular Hemoglobin Concent 34.1 g/dL (32.0-36.0) Red Cell Distribution Width 12.6 % (11.8-14.3) Platelet Count 270 10^3/uL (140-450) Mean Platelet Volume 7.2 fL (6.9-10.8) Neutrophils (%) (Auto) 93.5 % (37.0-80.0) Lymphocytes (%) (Auto) 2.0 % (10.0-50.0) Monocytes (%) (Auto) 4.4 % (0.0-12.0) Eosinophils (%) (Auto) 0.0 % (0.0-7.0) Basophils (%) (Auto) 0.1 % (0.0-2.0) Neutrophils # (Auto) 10.3 10 ^3/uL (1.6-8.6) Lymphocytes # (Auto) 0.2 10 ^3/uL (0.4-5.4) Monocytes # (Auto) 0.5 10 ^3/uL (0-1.3) Eosinophils # (Auto) 0 10 ^3/uL (0-0.8) Basophils # (Auto) 0 10 ^3/uL (0-0.2) Nucleated Red Blood Cells 0.0 % Urine Color Light-yellow (Yellow) Urine Clarity Clear (Clear) Urine pH 5.5 (5.0-9.0) Urine Specific [place] 1.011 (1.001-1.035) Urine Protein Trace (Negative) Urine Ketones 2+ (Negative) Urine Blood Negative /uL (Negative) Urine Nitrite Negative (Negative) Urine Bilirubin Negative (Negative) Urine Urobilinogen Normal mg/dL (Negative) Urine Leukocyte Esterase Negative /uL (Negative) Urine RBC <1 /hpf (0 - 4) Urine Microscopic WBC 1 /HPF (0-5) Urine Squamous Epithelial Cells None seen /hpf (<5) Urine Bacteria None seen /hpf (None Seen) Urine Glucose Normal mg/dL (Normal) Test 11/25/24 10:14 11/25/24 09:10 11/25/24 08:45 Blood Gas Liter Flow 0.00 Influenza Type A Antigen Negative (Negative) Influenza Type B Antigen Negative (Negative) SARS-CoV-2 Antigen (Rapid) Positive (NEGATIVE) Lactic Acid Level 1.4 mmol/L (0.4-2.0) Troponin I High Sensitivity 3 ng/L (</=34) B-Type Natriuretic Peptide 46.08 pg/mL (0-100) Other Laboratory Tests 11/30/24 07:03 11/27/24 09:55 Brief Hx & Hospital Course: see dictated note Condition at Discharge: Fair Final Diagnosis/Problems List copd covid 19 Discharge Disposition: Home Discharge Instruct/Medications Diet: Regular Activity: No Restrictions, As Tolerated Follow Up/Referral: fu with pcp in 1 wk Medications: resume home meds script to pharmacy Discharge Statement: "Patient was advised to return to the ER or call 911 if any headaches, dizziness, shortness of breath, chest pain, abdominal pain, bleeding, fevers, or worsening of medical condition. Patient was counseled about treatment plan, medications, possible side effects, patientverbalized understanding. All questions were answered to the best of my ability. This discharge took greater then 30 minutes in planning, reviewing documentation, counseling the patient, and discussing with other team members." ASSESSMENT ASSESSMENT Assessment copd covid 19 Date of Service: Nov 30, 2024 Billing Provider: LEXI VAUGHN MD Common Visit Codes: [id number] DISCH DAY >30min LEXI VAUGHN MD Nov 30, 2024 10:21
[2024-11-30] MEDS ORDERED: ALBUAER3 IN (10:23)
[2024-11-30] MEDS ORDERED: AZIT500T PO (10:23)
[2024-11-30] MEDS ORDERED: PRED20TA2 PO (10:23)
--- NOTE | 2024-11-30 10:31 | DVHDS ---
DATE OF DISCHARGE: 11/30/2024 HISTORY OF PRESENT ILLNESS: The patient is a 69-year-old lady who was admitted with history of COPD, cervical cancer, hypertension with complaints of cough, nausea and shortness of breath. HOSPITAL COURSE: The patient had a chest x-ray that showed evidence of COPD. The patient was COVID-19 positive. The patient was started on treatment with remdesivir. The patient had ABGs on room air that showed a pH of 7.49, pCO2 of 43 and a pO2 of 40. The patient is now improved and will be discharged home. Doppler of lower extremities was negative for DVT. She will be discharged to be on home oxygen between 3.5-4 liters continuous along with prednisone 20 mg daily for 7 days, Zithromax 500 mg daily for 5 days and albuterol MDI p.r.n. She will follow up with her primary in 1 week. She has been strongly counseled to stop smoking. FINAL DIAGNOSES: Therefore, * Acute respiratory failure. * Chronic obstructive pulmonary disease with exacerbation. * COVID-19 pneumonia with sepsis. * Questionable gram-positive, gram-negative pneumonia. * History of cervical cancer. * Tobacco abuse. Time spent on discharge planning and review of plan with the patient and nursing was 38 minutes. MD VIKTORIA Hou/DONAL TID: [id number] RECEIPT: [id number]
[2024-12-01] MEDS ORDERED: ENOXAPARIN SOD 40 MG/0.4 ML SYRINGE SC SCH (10:00)
== END 2024-11-30 15:41 | disposition home health service (06) | DRG 871 ==
LOC: ER 08:06 → OVERFLOW 11:23 → CENTRAL 15:15
PROVIDERS: ADMIT Internal Medicine; ATTEND Internal Medicine
DX: A41.89 Other specified sepsis (principal); J12.82 Pneumonia due to coronavirus disease 2019; J15.69 Pneumonia due to other Gram-negative bacteria; J15.9 Unspecified bacterial pneumonia; J96.00 Acute respiratory failure, unspecified whether with hypoxia or hypercapnia; E87.1 Hypo-osmolality and hyponatremia; J44.1 Chronic obstructive pulmonary disease with (acute) exacerbation; E44.0 Moderate protein-calorie malnutrition; Z68.1 Body mass index [BMI] 19.9 or less, adult; I10 Essential (primary) hypertension; F17.210 Nicotine dependence, cigarettes, uncomplicated; M85.88 Other specified disorders of bone density and structure, other site; Z20.822 Contact with and (suspected) exposure to COVID-19; E86.0 Dehydration; Z85.41 Personal history of malignant neoplasm of cervix uteri; Z88.0 Allergy status to penicillin; Z71.6 Tobacco abuse counseling; Z79.899 Other long term (current) drug therapy
CPT/HCPCS: 36415; 36600; 71045; 80048; 80053; 81001; 82805; 83605; 83880; 84484; 85025; 87426; 87804; 93970; 94640; 96374; 99291; G0378

== ENCOUNTER → 2024-12-21 | Outpatient (CLI) | payer MEDICARE ==
[~2024-12-21] MED LIST: ALBUAER3 IN; AZIT500T PO; PRED20TA2 PO
== END | disposition home or self-care (01) ==
LOC: LAB 13:30
PROVIDERS: ATTEND Internal Medicine
DX: J44.9 Chronic obstructive pulmonary disease, unspecified (principal); E55.9 Vitamin D deficiency, unspecified; E53.8 Deficiency of other specified B group vitamins; Z79.899 Other long term (current) drug therapy
CPT/HCPCS: 36415; 82306; 82607; 84443